=== PATIENT | female | born 1985 | race Two or more races ===

== ENCOUNTER 2018-09-15 23:12 | Emergency (ER) | payer OTHER ==
[~2018-09-15] VITALS: Ht 177.8 cm; Wt 105.2 kg
[~2018-09-15 23:12] MED LIST: ADVAIR 2501 DISK W/1 IH; AVELOX ABC PAC400 MG PO; BENADRYL50 MG PO; COPAXONE20 MG/KIT SQ; INTESTINEX1 CAP PO; MEDROL4 MG PO; PROTONIX40 MG PO; SINGULAIR10 MG PO; SYNTHROID100 MCG; XOPENEX HFA15 GM IH; XOPONEX; [UNRECOGNIZED DRUG - OTHER]; [UNRECOGNIZED DRUG - OTHER] TP
== END 2018-09-16 02:27 | disposition home or self-care (01) ==
LOC: ER 23:12
DX: M94.0 Chondrocostal junction syndrome [Tietze] (principal); R07.89 Other chest pain

== ENCOUNTER 2019-12-05 06:26 | Emergency (ER) | payer OTHER ==
[~2019-12-05] VITALS: Ht 152.4 cm; Wt 108.0 kg
== END 2019-12-05 09:27 | disposition home or self-care (01) ==
LOC: ER 06:26
DX: R00.2 Palpitations (principal)

== ENCOUNTER 2022-01-13 07:21 | Emergency (ER) | payer OTHER ==
[~2022-01-13] VITALS: Ht 175.3 cm; Wt 114.3 kg
[2022-01-13] MEDS ORDERED: TECFIDERA240 MG PO (08:03)
[2022-01-13] MEDS ORDERED: PAXLOVID 150-11 EACH PO (09:09)
== END 2022-01-13 09:44 | disposition home or self-care (01) ==
LOC: ER 07:21
DX: U07.1 COVID-19 (principal); E03.9 Hypothyroidism, unspecified; Z88.2 Allergy status to sulfonamides; J45.909 Unspecified asthma, uncomplicated

== ENCOUNTER 2022-03-26 18:22 | Emergency (ER) | payer OTHER ==
[~2022-03-26] VITALS: Ht 152.4 cm; Wt 111.1 kg
[~2022-03-26 18:22] MED LIST changes: +PAXLOVID 150-11 EACH PO; +TECFIDERA240 MG PO
[2022-03-26] MEDS ORDERED: SYNTHROID137 MCG (18:39)
== END 2022-03-27 01:12 | disposition home or self-care (01) ==
LOC: ER 18:22
DX: A05.9 Bacterial foodborne intoxication, unspecified (principal); Z20.822 Contact with and (suspected) exposure to COVID-19; Z88.2 Allergy status to sulfonamides

== ENCOUNTER 2023-10-20 10:39 | Outpatient (CLI) | payer OTHER ==
[~2023-10-20 10:39] MED LIST changes: +SYNTHROID137 MCG
== END 2023-10-20 10:41 | disposition home or self-care (01) ==
LOC: MAMO-SONO 10:39
PROVIDERS: ATTEND Psychiatry & Neurology Clinical Neurophysiology
DX: N63.0 Unspecified lump in unspecified breast (principal); Z12.31 Encounter for screening mammogram for malignant neoplasm of breast

== ENCOUNTER 2024-01-29 01:11 | Emergency (ER) | payer OTHER ==
[~2024-01-29] VITALS: Ht 172.7 cm; Wt 113.4 kg
[2024-01-29 09:10] LABS: HEMATOCRIT 41.7 % (36.0-45.00); HEMOGLOBIN 14.1 g/dL (12.0-15.00); MEAN CELL VOLUME 84.7 fL (80.00-100.00); MEAN CORPUSCULAR HEMOGLOBIN 28.6 pg (27.00-32.0); MEAN CORPUSCULAR HGB CONC 33.8 g/dl (32.0-36.0); PLATELET COUNT 206 K/uL (150-450); RED BLOOD COUNT 4.92 M/uL (4.00-6.00); RED CELL DISTRIBUTION WIDTH 14.4 % (11.5-14.5)
[2024-01-29 10:09] LABS: ABG PH 7.415 (7.35-7.45)
[2024-01-29 10:10] LABS: ABG PO2 91.5 mmHg (80-100); ABG pCO2 40.2 mmHg (35-45); BASE EXCESS 0.6 mmol/l; BICARBONATE 25.2 mmol/l (23-25); SaO2 97.2 %; Tco2 26.4 mmol/l; allen test SATISFACTORY; o2 21 %; puncture site RADIAL RIGHT
[2024-01-29 10:28] LABS: ALBUMIN 3.5 gm/dL (3.4-5.0); BILIRUBIN TOTAL 0.53 mg/dL (0.3-1.2); CALCIUM 8.3 mg/dL (8.5-10.1); CREATININE SERUM 0.73 mg/dL (0.55-1.02); GFR 88.3; GLOBULINA 4.9 G/DL (2.4-3.5); POTASSIUM 3.69 mEq/L (3.5-5.1); TOTAL PROTEIN 8.4 gm/dL (6.4-8.2)
== END 2024-01-29 11:09 | disposition home or self-care (01) ==
LOC: ER 01:12
PROVIDERS: General Practice
DX: R53.81 Other malaise (principal); R06.02 Shortness of breath; R00.2 Palpitations; Z88.2 Allergy status to sulfonamides

== ENCOUNTER → 2024-05-11 | Emergency (ER) | payer OTHER ==
[~2024-05-11] VITALS: Ht 175.3 cm; Wt 105.2 kg
[~2024-05-11] MED LIST changes: +MEDROLPACK PO; +OZEMPIC0.25 MG/02 SQ
== END | disposition left against medical advice (07) ==
LOC: ER 22:49
DX: Z53.21 Procedure and treatment not carried out due to patient leaving prior to being seen by health care provider (principal)

== ENCOUNTER 2024-05-14 01:29 | Emergency (ER) | payer OTHER ==
[~2024-05-14] VITALS: Ht 175.3 cm; Wt 105.2 kg
[~2024-05-14 01:29] MED LIST changes: -MEDROLPACK PO
[2024-05-14] MEDS ORDERED: ORPHENADRINE CITRATE 30 MG/ML AMPUL IV STA (02:47)
[2024-05-14] MEDS ORDERED: METHYLPREDNISOLONE SOD SUCC 125 MG VIAL IV STA (02:47)
[2024-05-14] MEDS ORDERED: ACETAMINOPHEN 500 MG GEL..CAP PO STA (02:47)
[2024-05-14] MEDS ORDERED: 0.9 % SODIUM CHLORIDE 1,000 ML IV ONE (03:00)
[2024-05-14 04:02] LABS: HEMATOCRIT 40.9 % (36.0-45.00); HEMOGLOBIN 13.9 g/dL (12.0-15.00); MEAN CELL VOLUME 83.7 fL (80.00-100.00); MEAN CORPUSCULAR HEMOGLOBIN 28.5 pg (27.00-32.0); PLATELET COUNT 217 K/uL (150-450); RED BLOOD COUNT 4.89 M/uL (4.00-6.00); RED CELL DISTRIBUTION WIDTH 13.8 % (11.5-14.5)
[2024-05-14 04:17] LABS: ALBUMIN 3.3 gm/dL (3.4-5.0); BILIRUBIN TOTAL 0.4 mg/dL (0.3-1.2); CALCIUM 8.3 mg/dL (8.5-10.1); CREATININE SERUM 0.82 mg/dL (0.55-1.02); GFR 77.21; GLOBULINA 4.4 G/DL (2.4-3.5); POTASSIUM 4.25 mEq/L (3.5-5.1); TOTAL PROTEIN 7.7 gm/dL (6.4-8.2)
[2024-05-14 05:35] LABS: PH,URINE 6.5 (5.0-8.0); URINE APPEARANCE Clear; URINE BILIRRUBIN Negative (NEGATIVE); URINE BLOOD Negative; URINE COLOR Yellow; URINE GLUCOSE Negative (NEGATIVE); URINE KETONE Negative (NEGATIVE); URINE LEUKOCYTE Negative; URINE NITRATE Negative; URINE PROTEIN Negative (NEGATIVE); URINE UROBILINOGEN 0.2 E.U./dl
[2024-05-14 05:39] LABS: URINE BACTERIA 113.3 uL (0.0-1933); URINE EPITHELIAL CELLS 59.9 uL (0.0-38.8); URINE WBC 4.7 uL (0.0-23.2)
[2024-05-14 06:04] LABS: URINE RBC 1.5 uL (0.0-20.8)
[2024-05-14] MEDS ORDERED: MEDROLPACK PO (08:23)
== END 2024-05-14 08:38 ==
LOC: ER 01:31
PROVIDERS: General Practice
DX: G35 Multiple sclerosis (principal); E03.8 Other specified hypothyroidism; Z88.2 Allergy status to sulfonamides; Z91.041 Radiographic dye allergy status
CPT/HCPCS: 36415; 96365; 96366; 99282; J2360; J3490; J7030

== ENCOUNTER 2024-08-16 00:55 | Emergency (ER) | payer OTHER ==
[~2024-08-16] VITALS: Ht 175.3 cm; Wt 104.3 kg
[~2024-08-16 00:55] MED LIST changes: +MEDROLPACK PO
[2024-08-16] MEDS ORDERED: METHYLPREDNISOLONE SOD SUCC 125 MG VIAL IV STA (02:44)
[2024-08-16] MEDS ORDERED: 0.9 % SODIUM CHLORIDE 1,000 ML IV ONE (02:45)
[2024-08-16] MEDS ORDERED: METHYLPREDNISOLONE SOD SUCC 125 MG VIAL ONE (02:52)
[2024-08-16 03:25] LABS: HEMATOCRIT 40.2 % (36.0-45.00); HEMOGLOBIN 13.3 g/dL (12.0-15.00); MEAN CELL VOLUME 84.5 fL (80.00-100.00); MEAN CORPUSCULAR HGB CONC 33.1 g/dl (32.0-36.0); PLATELET COUNT 197 K/uL (150-450); RED BLOOD COUNT 4.76 M/uL (4.00-6.00); RED CELL DISTRIBUTION WIDTH 13.8 % (11.5-14.5)
[2024-08-16 04:04] LABS: ALBUMIN 3.3 gm/dL (3.4-5.0); BILIRUBIN TOTAL 0.56 mg/dL (0.3-1.2); CALCIUM 8.5 mg/dL (8.5-10.1); CREATININE SERUM 0.81 mg/dL (0.55-1.02); GFR 78.31; GLOBULINA 4.5 G/DL (2.4-3.5); POTASSIUM 4.16 mEq/L (3.5-5.1); TOTAL PROTEIN 7.8 gm/dL (6.4-8.2)
[2024-08-16] MEDS ORDERED: MEDROL4 MG PO (04:29)
== END 2024-08-16 04:43 ==
LOC: ER 00:58
PROVIDERS: General Practice
DX: R20.2 Paresthesia of skin (principal); Z88.2 Allergy status to sulfonamides; Z91.041 Radiographic dye allergy status; G35 Multiple sclerosis; E11.9 Type 2 diabetes mellitus without complications; Z79.84 Long term (current) use of oral hypoglycemic drugs
CPT/HCPCS: 36415; 96365; 96366; 99282; J3490; J7030

== ENCOUNTER 2024-09-14 11:36 | Emergency (ER) | payer OTHER ==
[~2024-09-14] VITALS: Ht 175.3 cm; Wt 103.9 kg
[2024-09-14] MEDS ORDERED: [UNRECOGNIZED DRUG - OTHER] PO (12:08)
== END 2024-09-14 12:54 | disposition home or self-care (01) ==
LOC: ER 11:39
DX: G35 Multiple sclerosis (principal); R53.1 Weakness; Z88.2 Allergy status to sulfonamides; Z91.041 Radiographic dye allergy status

== ENCOUNTER 2024-12-11 23:04 | Emergency (ER) | payer OTHER ==
[~2024-12-11] VITALS: Ht 175.3 cm; Wt 104.3 kg
[~2024-12-11 23:04] MED LIST changes: +[UNRECOGNIZED DRUG - OTHER] PO
[2024-12-12] MEDS ORDERED: DIPHENHYDRAMINE HCL 12.5 MG/5 ML BLIST.PACK PO STA (01:12)
[2024-12-12] MEDS ORDERED: BENADRYL25 MG PO (01:15)
[2024-12-12] MEDS ORDERED: DIPHENHYDRAMINE HCL 12.5 MG/5 ML BLIST.PACK PO ONE (01:18)
== END 2024-12-12 01:26 ==
LOC: ER 23:08
DX: T50.995A Adverse effect of other drugs, medicaments and biological substances, initial encounter (principal); Z88.2 Allergy status to sulfonamides; Z91.041 Radiographic dye allergy status; J45.909 Unspecified asthma, uncomplicated

== ENCOUNTER 2024-12-21 02:56 | Emergency (ER) | payer OTHER ==
[~2024-12-21] VITALS: Ht 175.3 cm; Wt 104.3 kg
[~2024-12-21 02:56] MED LIST changes: +BENADRYL25 MG PO
[2024-12-21] MEDS ORDERED: 0.9 % SODIUM CHLORIDE 1,000 ML IV STA (03:43)
[2024-12-21] MEDS ORDERED: METHYLPREDNISOLONE SOD SUCC 125 MG VIAL ONE (03:44)
[2024-12-21] MEDS ORDERED: METHYLPREDNISOLONE SOD SUCC 500 MG VIAL IV STA (03:44)
[2024-12-21 04:00] LABS: ERYTHROCYTE SEDIMENTATION RATE 33 mm/hr (0-20)
[2024-12-21 04:01] LABS: BASO % 0.5 % (0.1-1.2); EOS # 0.02 (0.04-0.54); EOS % 0.5 % (0.7-7.0); HEMATOCRIT 40.8 % (34.1-44.9); HEMOGLOBIN 13.4 g/dL (11.2-15.7); LYMPH # 0.27 (1.18-3.74); LYMPH % 7.2 % (19.3-53.1); MEAN CORPUSCULAR HEMOGLOBIN 27.9 pg (25.6-32.2); MONO # 0.32 (0.24-0.82); MONO % 8.6 % (4.7-12.5); NEUT % 83.2 % (34.0-71.1); PLATELET COUNT 184 K/uL (163-369); RED CELL DISTRIBUTION WIDTH 13.5 % (11.6-14.4)
[2024-12-21 04:20] LABS: INR 1.05; PARTIAL THROMBOPLASTIN TIME 28.2 SECONDS (22.0-34.0); PROTHROMBIN TIME 11.4 SECONDS (9.0-11.5)
[2024-12-21 04:52] LABS: ALBUMIN 3.3 gm/dL (3.4-5.0); BILIRUBIN TOTAL 0.44 mg/dL (0.3-1.2); CALCIUM 8.3 mg/dL (8.5-10.1); CREATININE SERUM 0.79 mg/dL (0.55-1.02); GFR 80.2; GLOBULINA 4.7 G/DL (2.4-3.5); POTASSIUM 4.18 mEq/L (3.5-5.1)
== END 2024-12-21 07:41 | disposition home or self-care (01) ==
LOC: ER 02:56
DX: R25.9 Unspecified abnormal involuntary movements (principal); T50.905A Adverse effect of unspecified drugs, medicaments and biological substances, initial encounter; Y92.89 Other specified places as the place of occurrence of the external cause; Z88.2 Allergy status to sulfonamides; Z88.8 Allergy status to other drugs, medicaments and biological substances

== ENCOUNTER → 2025-01-10 | Emergency (ER) | payer OTHER ==
[~2025-01-10] VITALS: Ht 175.3 cm; Wt 104.3 kg
[~2025-01-10] MED LIST changes: +ACETAMINOPHEN500 M1 PO; +BUDESONIDE 0.5 MG/2 ML AMPUL.NEB IH ONE; +GILTUSS COUGH-118 M1 PO; +IPRATROPIUM BROMIDE 0.5 MG/2.5 ML AMPUL.NEB IH SCH; +LEVALBUTER1.25 MG/3 IH; +LEVALBUTEROL HCL 1.25 MG/3 ML SOLUTION IH SCH; +PAXLOVID 300-11 EAC1 PO
[2025-01-10 09:20] LABS: BASO % 0.6 % (0.1-1.2); EOS # 0.02 (0.04-0.54); EOS % 0.6 % (0.7-7.0); LYMPH # 0.38 (1.18-3.74); LYMPH % 12.1 % (19.3-53.1); MEAN PLATELET VOLUME 10.10 fl (9.4-12.4); MONO # 0.54 (0.24-0.82); NEUT # 2.18 (1.56-6.13); NEUT % 69.3 % (34.0-71.1); RED CELL DISTRIBUTION WIDTH 13.2 % (11.6-14.4)
[2025-01-10 09:30] LABS: COVID-19 AG POSITIVE (NEGATIVE)
[2025-01-10 09:31] LABS: MONO % 17.1 % (4.7-12.5)
[2025-01-10 12:32] VITALS: BP 110/75; O2SAT 99
== END | disposition home or self-care (01) ==
LOC: ER 06:58
PROVIDERS: Preventive Medicine Public Health & General Preventive Medicine
DX: U07.1 COVID-19 (principal); Z88.2 Allergy status to sulfonamides; Z91.041 Radiographic dye allergy status

== ENCOUNTER 2025-01-30 06:44 | Emergency (ER) | payer OTHER ==
[~2025-01-30] VITALS: Ht 175.3 cm; Wt 105.2 kg
[~2025-01-30 06:44] MED LIST changes: -BUDESONIDE 0.5 MG/2 ML AMPUL.NEB IH ONE; -IPRATROPIUM BROMIDE 0.5 MG/2.5 ML AMPUL.NEB IH SCH; -LEVALBUTEROL HCL 1.25 MG/3 ML SOLUTION IH SCH
[2025-01-30] MEDS ORDERED: HYDROCODONE/CHLORPHEN P-STIREX 5 ML ML PO STA (08:08)
[2025-01-30 08:35] LABS: BASO % 0.5 % (0.1-1.2); EOS # 0.02 (0.04-0.54); EOS % 0.5 % (0.7-7.0); LYMPH # 0.42 (1.18-3.74); LYMPH % 10.1 % (19.3-53.1); MEAN PLATELET VOLUME 10.20 fl (9.4-12.4); MONO # 0.44 (0.24-0.82); MONO % 10.6 % (4.7-12.5); NEUT # 3.25 (1.56-6.13); NEUT % 78.1 % (34.0-71.1); RED CELL DISTRIBUTION WIDTH 12.8 % (11.6-14.4)
[2025-01-30 09:35] LABS: COVID-19 AG NEGATIVE (NEGATIVE)
== END 2025-01-30 10:34 | disposition home or self-care (01) ==
LOC: ER 06:44
DX: J06.9 Acute upper respiratory infection, unspecified (principal); Z20.822 Contact with and (suspected) exposure to COVID-19; Z88.2 Allergy status to sulfonamides; Z88.8 Allergy status to other drugs, medicaments and biological substances

== ENCOUNTER 2025-02-06 09:47 | Outpatient (CLI) | payer OTHER | END 2025-02-06 09:49 | disposition home or self-care (01) | LOC: MRI 09:47 | PROVIDERS: ATTEND Psychiatry & Neurology Clinical Neurophysiology | DX: G35 Multiple sclerosis (principal) | CPT/HCPCS: 70552; Q9965 ==

== ENCOUNTER 2025-02-10 06:08 | Emergency (ER) | payer OTHER ==
[~2025-02-10] VITALS: Ht 175.3 cm; Wt 104.3 kg
[2025-02-10] MEDS ORDERED: 0.9 % SODIUM CHLORIDE 1,000 ML IV STA (07:22)
[2025-02-10 07:57] LABS: BASO % 1.0 % (0.1-1.2); EOS # 0.05 (0.04-0.54); EOS % 1.3 % (0.7-7.0); LYMPH # 0.41 (1.18-3.74); LYMPH % 10.6 % (19.3-53.1); MEAN PLATELET VOLUME 10.10 fl (9.4-12.4); MONO # 0.40 (0.24-0.82); MONO % 10.3 % (4.7-12.5); NEUT # 2.95 (1.56-6.13); NEUT % 76.3 % (34.0-71.1); RED CELL DISTRIBUTION WIDTH 13.0 % (11.6-14.4)
[2025-02-10 08:52] LABS: BUN CREA RATIO 10.0 (7.0-25.0); CREATININE SERUM 0.73 mg/dL (0.55-1.02); GFR 87.85; GLUCOSE FASTING 93.0 mg/dL (65-100); OSMOLALITY SERUM 275.0 MOSM/KG (275-295); TSH 3.36 uIU/mL (0.358-3.74)
== END 2025-02-10 09:43 | disposition home or self-care (01) ==
LOC: ER 06:08
DX: N93.9 Abnormal uterine and vaginal bleeding, unspecified (principal); Z88.2 Allergy status to sulfonamides; Z91.013 Allergy to seafood; Z91.041 Radiographic dye allergy status
CPT/HCPCS: 36415; 76830; 96365; 96366; 99284; J7030

== ENCOUNTER 2025-03-12 06:19 | Emergency (ER) | payer OTHER ==
[~2025-03-12] VITALS: Ht 175.3 cm; Wt 104.3 kg
[2025-03-12] MEDS ORDERED: CEFTRIAXONE SODIUM 1,000 MG VIAL IM STA (07:20)
[2025-03-12 07:33] VITALS: BP 123/80; O2SAT 100
== END 2025-03-12 07:34 | disposition home or self-care (01) ==
LOC: ER 06:19
DX: J03.80 Acute tonsillitis due to other specified organisms (principal); Z88.2 Allergy status to sulfonamides; Z91.041 Radiographic dye allergy status; Z91.013 Allergy to seafood

== ENCOUNTER 2025-05-15 04:55 | Emergency (ER) | payer OTHER ==
[~2025-05-15] VITALS: Ht 175.3 cm; Wt 104.3 kg
[2025-05-15] MEDS ORDERED: 0.9 % SODIUM CHLORIDE 1,000 ML IV ONE (05:45)
[2025-05-15 06:55] LABS: BASO % 0.8 % (0.1-1.2); EOS # 0.04 (0.04-0.54); EOS % 1.1 % (0.7-7.0); LYMPH # 0.72 (1.18-3.74); LYMPH % 20.2 % (19.3-53.1); MEAN PLATELET VOLUME 10.00 fl (9.4-12.4); MONO # 0.30 (0.24-0.82); MONO % 8.4 % (4.7-12.5); NEUT # 2.47 (1.56-6.13); NEUT % 69.2 % (34.0-71.1); RED CELL DISTRIBUTION WIDTH 13.0 % (11.6-14.4)
[2025-05-15 07:28] LABS: ALT/SGPT 27.0 U/L (12-78); AST/SGOT 18.0 U/L (15-37); BILIRUBIN TOTAL 0.51 mg/dL (0.3-1.2); BUN CREA RATIO 9.0 (7.0-25.0); CREATININE SERUM 0.76 mg/dL (0.55-1.02); GFR 83.86; GLOBULINA 4.5 G/DL (2.4-3.5); GLUCOSE FASTING 93.0 mg/dL (65-100); OSMOLALITY SERUM 273.0 MOSM/KG (275-295); TSH 0.722 uIU/mL (0.358-3.74)
[2025-05-15 08:40] VITALS: BP 109/74; O2SAT 97
[2025-05-16] MEDS ORDERED: AMOX1TAB5 PO (07:50)
[2025-05-16] MEDS ORDERED: CEPACOL SORE T1 EAC1 PO (07:50)
== END 2025-05-15 08:47 | disposition home or self-care (01) ==
LOC: ER 04:55
PROVIDERS: General Practice
DX: E86.0 Dehydration (principal); R20.0 Anesthesia of skin; R53.1 Weakness; R51.9 Headache, unspecified; E11.9 Type 2 diabetes mellitus without complications; Z88.2 Allergy status to sulfonamides; Z88.8 Allergy status to other drugs, medicaments and biological substances
CPT/HCPCS: 36415; 96365; 96366; 99282; J7030

== ENCOUNTER 2025-05-16 05:24 | Emergency (ER) | payer OTHER ==
[~2025-05-16] VITALS: Ht 175.3 cm; Wt 103.9 kg
[2025-05-16] MEDS ORDERED: CEPACOL SORE T1 EAC1 PO (07:50)
[2025-05-16] MEDS ORDERED: AMOX1TAB5 PO (07:50)
[2025-05-16] MEDS ORDERED: DEXAMETHASONE SODIUM PHOSPHATE 4 MG/ML VIAL IM STA (08:21)
[2025-05-16] MEDS ORDERED: CEFTRIAXONE SODIUM 1,000 MG VIAL IM STA (08:21)
[2025-05-16] MEDS ORDERED: DEXAMETHASONE SODIUM PHOSPHATE 4 MG/ML VIAL ONE (08:26)
[2025-05-16] MEDS ORDERED: CEFTRIAXONE SODIUM 1,000 MG VIAL ONE (08:27)
[2025-05-16] MEDS ORDERED: LIDOCAINE HCL 1% 10ML VIAL ONE (08:29)
== END 2025-05-16 08:44 | disposition home or self-care (01) ==
LOC: ER 05:25
DX: J02.9 Acute pharyngitis, unspecified (principal); Z88.2 Allergy status to sulfonamides; Z88.8 Allergy status to other drugs, medicaments and biological substances; Z87.09 Personal history of other diseases of the respiratory system
CPT/HCPCS: 96372; 99282; J0696; J1100